=== PATIENT | female | born 1940 | race Caucasian/White ===

== ENCOUNTER 2024-02-25 12:01 | Observation (INO) ==
[2024-02-25 12:30] LABS: ABS Basophils 0.1 10^3/uL (0.0-0.1); ABS Eosinophils 0.1 10^3/uL (0.0-0.5); ABS Lymphocytes 0.7 10^3/uL (1.0-4.8); ABS Monocytes 0.6 10^3/uL (0.0-0.9); ABS Neutrophils 6.5 10^3/uL (1.5-7.6); Eosinophil % 1.2 %; Hematocrit 38.9 % (35-45); Hemoglobin 13.4 g/dL (11.5-14.3); Lymphocyte % 8.3 %; Mean Corpuscular Hemoglobin 33.3 pg (27-33); Mean Corpuscular Hgb Conc 34.6 g/dL (31-36); Mean Corpuscular Volume 96.5 fL (80-97); Mean Platelet Volume 8.5 fL (7.5-11.2); Platelet Count 137 10^3/uL (150-450); Red Blood Count 4.03 10^6/uL (3.63-4.92); Red Cell Distribution Width 12.3 % (12-17); White Blood Count 7.9 10^3/uL (3.8-11.8)
[2024-02-25] MEDS: Acetaminophen IV 1 GM/100ML 1,000 MG/100 ML BAG IV ONE (12:40)
[2024-02-25] MEDS: Ondansetron 4 mg VIAL 2 MG/ML 2 ml VIAL IV ONE (12:40)
[2024-02-25 13:04] LABS: INR 0.97 (0.83-1.13)
[2024-02-25 13:19] LABS: Albumin 4.1 g/dL (3.2-5.2); Albumin/Globulin Ratio 1.9 (1-3); Calcium 9.6 mg/dL (8.6-10.3); Creatinine, Serum 0.61 mg/dL (0.51-0.95); Globulin 2.2 g/dL (2-4); Potassium 3.6 mmol/L (3.5-5.0); Total Bilirubin 0.6 mg/dL (0.2-1.0); Total Protein 6.3 g/dL (6.4-8.9); eGFR CKD-EPI 89.8 (>60)
[2024-02-25] MEDS: Iohexol 350 (CONTRAST) 500 ML MDV IV ONE (13:34)
[2024-02-25 14:42] LABS: High Sensitivity Troponin 1 Hr 38 pg/mL (<15)
[2024-02-25] MEDS: cefTRIAXone 1 gm/50 mL D5W 1 GM/50 ML BAG IV ONE (15:42)
[2024-02-25] MEDS: metroNIDAZOLE IV 500 MG/100ML 500 MG/100 ML BAG IVPB ONE (16:36)
[2024-02-25] MEDS: fentaNYL 100 mcg/2 ml 50 MCG/ML VIAL IV SLOW PU PRN (17:09)
[2024-02-25] MEDS: HYDROmorphone 0.5 MG/0.5 ML SYRINGE IV PRN (19:25)
[2024-02-25] MEDS: Enoxaparin 40 MG/0.4 ML SYR SUBCUT SCH (19:27)
[2024-02-25] MEDS: D5W 1/2 NS KCl 20 meq 1000 ml 1,000 ML IV SCH (19:30)
[2024-02-25] MEDS ORDERED: Sulfur Hexaflouride MICROSPHR 25 MG VIAL IV ONE (21:46)
[2024-02-25 22:03] LABS: C Reactive Protein 11.92 mg/L (<8.01)
[2024-02-25] MEDS: metroNIDAZOLE IV 500 MG/100ML 500 MG/100 ML BAG IVPB SCH (22:20)
[2024-02-26] MEDS: Ondansetron 4 mg VIAL 2 MG/ML 2 ml VIAL IV PRN ×2 (02:59→12:23)
[2024-02-26] MEDS: Metoprolol Tartrate 5 mg VIAL 5 ml VIAL (1 mg/ml) IV ONE (03:04)
[2024-02-26 04:49] LABS: Calcium 9.1 mg/dL (8.6-10.3); Creatinine, Serum 0.6 mg/dL (0.51-0.95); Potassium 3.6 mmol/L (3.5-5.0); eGFR CKD-EPI 90.1 (>60)
[2024-02-26 05:04] LABS: High Sensitivity Troponin 1 Hr 32 pg/mL (<15)
[2024-02-26 07:24] LABS: ABS Lymphocytes 0.5 10^3/uL (1.0-4.8); ABS Neutrophils 9.1 10^3/uL (1.5-7.6); ABS Nucleated RBC 0.01 10^3/ul; Hematocrit 38.1 % (35-45); Hemoglobin 13.3 g/dL (11.5-14.3); Lymphocyte % 4.7 %; Mean Corpuscular Hemoglobin 33.7 pg (27-33); Mean Corpuscular Volume 96.5 fL (80-97); Mean Platelet Volume 8.7 fL (7.5-11.2); Nucleated Red Blood Cells % 0.1 %/100WBC (0.0-0.8); Platelet Count 137 10^3/uL (150-450); Red Blood Count 3.95 10^6/uL (3.63-4.92); Red Cell Distribution Width 12.3 % (12-17); White Blood Count 10.7 10^3/uL (3.8-11.8)
[2024-02-26] MEDS: cefTRIAXone 1 gm/50 mL D5W 1 GM/50 ML BAG IV SCH ×2 (15:48→15:52)
[2024-02-26] MEDS: SMOG Enema (MgOH-NS-Gly-MinO) 330 ML ENEMA PR ONE (18:19)
[2024-02-26] MEDS: Acetaminophen IV 1 GM/100ML 1,000 MG/100 ML BAG IV SCH (21:22)
[2024-02-26] MEDS: metroNIDAZOLE IV 500 MG/100ML 500 MG/100 ML BAG IVPB SCH (21:51)
[2024-02-27 06:28] LABS: Hematocrit 34.4 % (35-45); Mean Corpuscular Hemoglobin 33.5 pg (27-33); Mean Corpuscular Volume 95.6 fL (80-97); Mean Platelet Volume 8.8 fL (7.5-11.2); Platelet Count 119 10^3/uL (150-450); Red Cell Distribution Width 12.4 % (12-17)
[2024-02-27 06:58] LABS: Calcium 8.5 mg/dL (8.6-10.3); Creatinine, Serum 0.68 mg/dL (0.51-0.95); Potassium 3.6 mmol/L (3.5-5.0); eGFR CKD-EPI 87.4 (>60)
[2024-02-27] MEDS ORDERED: Ondansetron 4 mg VIAL 2 MG/ML 2 ml VIAL IV PRN (10:53)
[2024-02-27] MEDS ORDERED: Naloxone 0.4 mg VIAL 0.4 mg/ml 1 ml VIAL IV PRN ×2 (10:53→14:48)
[2024-02-27] MEDS ORDERED: NS 0.45% 1000 ml BAG 1,000 ML IV SCH (11:00)
[2024-02-27] MEDS ORDERED: Famotidine IV 10 MG/ML 2 ml VIAL (20 mg) ONE (11:25)
[2024-02-27] MEDS ORDERED: Midazolam 2 mg/2 ml VIAL 1 mg/ml 2 ml VIAL (2 mg) ONE ×2 (11:25→17:05)
[2024-02-27] MEDS: Lactated Ringers 1000 ml BAG 1,000 ML IV SCH (11:34)
[2024-02-27] MEDS: Buffered Lidocaine 1% SYRIN 1 ml INTRADERM ONE (11:34)
[2024-02-27] MEDS ORDERED: Bupivacaine 0.25% SDV 30 ML ONE (12:02)
[2024-02-27] MEDS: Acetaminophen IV 1 GM/100ML 1,000 MG/100 ML BAG IV ONE (12:03)
[2024-02-27] MEDS ORDERED: Ondansetron 4 mg VIAL 2 MG/ML 2 ml VIAL ONE ×3 (12:32→17:31)
[2024-02-27] MEDS ORDERED: Dexamethasone IV 4 MG/ML VIAL 1 ml VIAL ONE ×2 (12:32→17:31)
[2024-02-27] MEDS ORDERED: Propofol 10 MG/ML 20 ML BTL ONE (12:32)
[2024-02-27] MEDS ORDERED: Rocuronium 50 mg VIAL 10 mg/ml 5 ml VIAL (50 mg) ONE ×3 (12:32→18:32)
[2024-02-27] MEDS ORDERED: Lidocaine 2% PF 5 ML VIAL ONE ×2 (12:39→17:04)
[2024-02-27] MEDS: fentaNYL 100 mcg/2 ml 50 MCG/ML VIAL IV PRN (13:18)
[2024-02-27] MEDS ORDERED: fentaNYL 100 mcg/2 ml 50 MCG/ML VIAL ONE ×2 (13:19→18:35)
[2024-02-27] MEDS ORDERED: Metoclopramide 5 MG/ML VIAL (10 mg) IV PRN (14:48)
[2024-02-27] MEDS ORDERED: fentaNYL 100 mcg/2 ml 50 MCG/ML VIAL IV PRN (14:48)
[2024-02-27] MEDS ORDERED: Succinylcholine 200 mg VIAL 20 mg/ml 10 ml VIAL (200 mg) ONE (17:04)
[2024-02-27] MEDS ORDERED: Sevoflurane BOTTLE ONE (17:04)
[2024-02-27] MEDS ORDERED: fentaNYL 250 mcg/5 ml 50 MCG/ML 5 ml VIAL (250 MCG) ONE (17:05)
[2024-02-27] MEDS ORDERED: Scopolamine 1 mg/72hr PATCH ONE (17:13)
[2024-02-27] MEDS ORDERED: cefTRIAXone VIAL 1,000 MG VIAL ONE (17:39)
[2024-02-27] MEDS ORDERED: cefTRIAXone 1 gm/50 mL D5W 1 GM/50 ML BAG IV ONE (17:41)
[2024-02-27] MEDS ORDERED: Esmolol 10 MG/ML 10 ML (100 mg) IV ONE (18:20)
[2024-02-27] MEDS ORDERED: HYDROmorphone 0.5 MG/0.5 ML SYRINGE ONE ×2 (18:26→18:43)
[2024-02-27] MEDS ORDERED: HYDROmorphone 1 MG/1 ML SYRINGE IV PRN (21:35)
[2024-02-28 06:43] LABS: Anion Gap 9 mmol/L (2-16); Blood Urea Nitrogen 22 mg/dL (6-24); CO2 Carbon Dioxide 25 mmol/L (22-32); Calcium 8.5 mg/dL (8.6-10.3); Chloride 96 mmol/L (101-111); Creatinine, Serum 0.67 mg/dL (0.51-0.95); Glucose 105 mg/dL (70-100); Sodium 130 mmol/L (135-145); eGFR CKD-EPI 87.8 (>60)
[2024-02-28 06:51] LABS: Potassium, Whole Blood 4.1 mmol/L (3.4-4.5)
[2024-02-28] MEDS: Sulfur Hexaflouride MICROSPHR 25 MG VIAL IV ONE (07:54)
[2024-02-28 08:40] LABS: Mean Corpuscular Hemoglobin 32.5 pg (27-33); Mean Corpuscular Hgb Conc 33.4 g/dL (31-36); Mean Corpuscular Volume 97.1 fL (80-97); Red Blood Count 3.39 10^6/uL (3.63-4.92); Red Cell Distribution Width 11.9 % (12-17); White Blood Count 7.9 10^3/uL (3.8-11.8)
[2024-02-28 08:48] LABS: ABS Lymphocytes 0.3 10^3/uL (1.0-4.8); ABS Monocytes 0.4 10^3/uL (0.0-0.9); ABS Neutrophils 7.1 10^3/uL (1.5-7.6); Lymphocyte % 4.1 %; Mean Platelet Volume 8.9 fL (7.5-11.2); Platelet Count 145 10^3/uL (150-450)
[2024-02-28 10:01] VITALS: BP 130/57
[2024-02-28] MEDS ORDERED: cefTRIAXone 1 gm/50 mL D5W 1 GM/50 ML BAG IV SCH (17:00)
== END 2024-02-28 16:20 | disposition home or self-care (01) | DRG 418 ==
LOC: ED 12:01 → EDHOLD 17:52 → INTOOBSV 17:52 → SUATTDRO 17:52 → OBSVTOIN 17:52 → MED 02-26 13:08 → SSU 02-27 21:23
PROVIDERS: ADMIT Hospitalist; ATTEND Student in an Organized Health Care Education/Training Program